=== PATIENT | female | born 1995 | race Caucasian/White ===

== ENCOUNTER → 2020-11-02 08:53 | Outpatient (BNVA) | payer BC, MEDICAID, SELFPAY | PROVIDERS: Visit Provider Obstetrics & Gynecology | DX: O34.219 Maternal care for unspecified type scar from previous cesarean delivery (principal); O21.9 Vomiting of pregnancy, unspecified; O26.891 Other specified pregnancy related conditions, first trimester; G43.109 Migraine with aura, not intractable, without status migrainosus; O99.331 Smoking (tobacco) complicating pregnancy, first trimester; F17.220 Nicotine dependence, chewing tobacco, uncomplicated; Z3A.10 10 weeks gestation of pregnancy | CPT/HCPCS: 80307; 81000; 85027; 86592; 86762; 86803; 86850; 86900; 87086; 87340; 87806 ==

== ENCOUNTER → 2020-11-23 13:10 | Outpatient (BNVA) | payer BC, MEDICAID, SELFPAY | PROVIDERS: Visit Provider Obstetrics & Gynecology | DX: O21.9 Vomiting of pregnancy, unspecified; Z3A.00 Weeks of gestation of pregnancy not specified | CPT/HCPCS: 81000; 87491; 87591 ==

== ENCOUNTER → 2020-12-17 13:11 | Outpatient (BNVA) | payer BC, MEDICAID, SELFPAY | PROVIDERS: Visit Provider Obstetrics & Gynecology | DX: O21.9 Vomiting of pregnancy, unspecified | CPT/HCPCS: 81000 ==

== ENCOUNTER → 2021-01-10 09:05 | Outpatient (BNVA) | payer BC, MEDICAID, SELFPAY | PROVIDERS: Visit Provider Obstetrics & Gynecology | DX: Z36.87 Encounter for antenatal screening for uncertain dates (principal) | CPT/HCPCS: 76805 ==

== ENCOUNTER → 2021-01-14 13:13 | Outpatient (BNVA) | payer BC, MEDICAID, SELFPAY | PROVIDERS: Visit Provider Obstetrics & Gynecology | DX: Z34.90 Encounter for supervision of normal pregnancy, unspecified, unspecified trimester (principal) | CPT/HCPCS: 81000 ==

== ENCOUNTER → 2021-02-08 15:21 | Outpatient (BNVA) | payer BC, MEDICAID, SELFPAY | PROVIDERS: Visit Provider Nurse Practitioner Women's Health | DX: O34.219 Maternal care for unspecified type scar from previous cesarean delivery (principal); G43.109 Migraine with aura, not intractable, without status migrainosus; Z72.0 Tobacco use | CPT/HCPCS: 81000; 82950 ==

== ENCOUNTER → 2021-03-07 10:57 | Outpatient (BNVA) | payer BC, MEDICAID, SELFPAY | PROVIDERS: Visit Provider Obstetrics & Gynecology | DX: Z34.80 Encounter for supervision of other normal pregnancy, unspecified trimester (principal) | CPT/HCPCS: 81000 ==

== ENCOUNTER → 2021-03-22 07:52 | Outpatient (BNVA) | payer BC, MEDICAID, SELFPAY | PROVIDERS: Visit Provider Obstetrics & Gynecology | DX: Z34.90 Encounter for supervision of normal pregnancy, unspecified, unspecified trimester (principal) | CPT/HCPCS: 81000; 85025 ==

== ENCOUNTER → 2021-04-05 08:08 | Outpatient (BNVA) | payer BC, MEDICAID, SELFPAY | PROVIDERS: Visit Provider Obstetrics & Gynecology | DX: O26.849 Uterine size-date discrepancy, unspecified trimester (principal); Z3A.00 Weeks of gestation of pregnancy not specified | CPT/HCPCS: 81000 ==

== ENCOUNTER → 2021-04-18 15:51 | Outpatient (BNVA) | payer BC, MEDICAID, SELFPAY | PROVIDERS: Visit Provider Obstetrics & Gynecology | DX: Z34.80 Encounter for supervision of other normal pregnancy, unspecified trimester (principal) | CPT/HCPCS: 81000 ==

== ENCOUNTER → 2021-05-03 08:30 | Outpatient (BNVA) | payer BC, MEDICAID, SELFPAY | PROVIDERS: Visit Provider Obstetrics & Gynecology | DX: Z34.80 Encounter for supervision of other normal pregnancy, unspecified trimester (principal) | CPT/HCPCS: 81000; 87081 ==

== ENCOUNTER → 2021-05-13 10:20 | Outpatient (BNVA) | payer BC, MEDICAID, SELFPAY | PROVIDERS: Visit Provider Obstetrics & Gynecology | DX: Z36.89 Encounter for other specified antenatal screening (principal) | CPT/HCPCS: 76815; 84315 ==

== ENCOUNTER → 2021-05-17 13:31 | Outpatient (BNVA) | payer BC, MEDICAID, SELFPAY | PROVIDERS: Visit Provider Obstetrics & Gynecology | DX: Z34.90 Encounter for supervision of normal pregnancy, unspecified, unspecified trimester (principal) | CPT/HCPCS: 81000 ==

== ENCOUNTER → 2021-05-24 08:46 | Outpatient (BNVA) | payer BC, MEDICAID, SELFPAY | PROVIDERS: Visit Provider Obstetrics & Gynecology | DX: Z34.80 Encounter for supervision of other normal pregnancy, unspecified trimester (principal) | CPT/HCPCS: 81000; 87635 ==

== ENCOUNTER → 2021-05-31 09:26 | Outpatient (BNVA) | payer BC, MEDICAID, SELFPAY | PROVIDERS: Visit Provider Obstetrics & Gynecology | DX: Z34.80 Encounter for supervision of other normal pregnancy, unspecified trimester (principal); Z20.822 Contact with and (suspected) exposure to COVID-19 | CPT/HCPCS: 81000; 87635 ==

== ENCOUNTER → 2021-06-06 10:48 | Outpatient (BNVA) | payer BC, MEDICAID, SELFPAY | PROVIDERS: Visit Provider Obstetrics & Gynecology | DX: Z34.80 Encounter for supervision of other normal pregnancy, unspecified trimester; Z20.822 Contact with and (suspected) exposure to COVID-19 | CPT/HCPCS: 81000; 87635 ==

== ENCOUNTER 2021-06-08 18:21 | Inpatient (IN) | payer BC, SELFPAY ==
[2021-06-08] VITALS (24 sets, daily range): BP systolic 93–135; BP diastolic 51–78; PULSE 69–90; RESP 18; TEMP 36.9; BMI 34.8
[2021-06-08 19:34] LABS: Basophils % 0.2 %; Eosinophils # 0.1 10^3/uL (0.0-0.8); Eosinophils % 0.5 %; Hematocrit 33.3 % (37.0-47.0); Hemoglobin 10.6 g/dL (11.5-15.3); Lymphocytes # 2.1 10^3/uL (0.8-4.8); Lymphocytes % 18.3 %; Mean Corpuscular HGB Conc 31.8 g/dL (30.0-36.0); Mean Corpuscular Hemoglobin 26.8 pg (28.0-34.0); Mean Corpuscular Volume 84.1 fl (81-99); Mean Platelet Volume 10.5 fL (7.4-10.4); Monocytes # 0.9 10^3/uL (0.2-0.9); Monocytes % 8.1 %; Neutrophils # 8.14 10^3/uL (1.8-7.7); Neutrophils % 72.2 %; Nucleated Red Blood Cells % 0 %; Platelet Count 196 10^3/cmm (130-400); Red Blood Count 3.96 10^6/uL (4.1-5.3); White Blood Count 11.3 10^3/uL (4.0-10.0)
--- NOTE | 2021-06-08 20:36 | PM.OPHPUD ---
Labor & Delivery H&P Update Date of Procedure: June 08, 2021 Date H&P Performed: 06/06/21 H&P update information: I have reviewed H&P completed within last 30 days, I have examined patient prior to procedure, No changes to prior documentation and H&P is in [facility] on date indicated Admission Diagnosis:
--- NOTE | 2021-06-08 20:37 | P.PN_ITS ---
Subjective Subjective: Interval history: Mrs. Gee 26 y/o female with EGA at 41 weeks with history of previous C/D. Refers feeling good and comfortable. Vitals/I&O/Wt Last Vital Signs Pulse 83 06/08/21 20:21 Resp 18 06/08/21 18:25 BP 125/72 06/08/21 20:21 Weight last 48 hrs Weight 92.079 kg Physical Exam Narrative: EXAM NARRATIVE: GA: Alert and oriented ?3. Lungs: Clear to auscultation bilaterally. Heart: Regular rhythm and rate. Abdomen: Gravid, full the height equals dates, nontender. EMERGENCY DEPARTMENT COORDINATOR: SVE; dilation: 2 cm, effacement: 30%, station: -4, presentation: Vertex, membranes: Intact. Extremities: no edema, no cyanosis, no calves pain. heart tracing: Basal rate: 140's bpm, Variability: Moderate, A ccelerations: Present, Decelerations: Absent, Contraction: Irregular. Data : 06/08/21 19:00 A&P Assessment and plan (1) Term : Mrs. Gee 26-year-old female G2, P1 with an estimated gestational age of 41 weeks with a history of 1 previous delivery. She wants a TOLAC. She was counseled regarding TOLAC and . She was admitted for elective induction but cervix unfavorable with a Salas score of 3. Due to her previous history of delivery cervical ripening with prostaglandin is contraindicated. Mechanical cervical ripening with cervical ripening balloon recommended. Cervical ripening balloon was placed without complications in the usual manner. Patient tolerated placement of the cervix ripening balloon well. The patient and her were advised of the maximum recommended time with the balloon is 12 hours. Status: Acute (2) Previous delivery affecting : Status: Acute Attestations Medical Necessity Statement*: In my professional opinion per admitting diagnosis Coding Level of Care Code Acute Prop Maker for Chg Fwd Diagnoses Term Z34.90 Previous delivery affecting O34.219
[2021-06-09] VITALS (92 sets, daily range): BP systolic 92–134; BP diastolic 51–78; PULSE 66–92; RESP 12–16; TEMP 36.3–36.9; O2SAT 93–100
--- NOTE | 2021-06-09 08:13 | P.PN_ITS ---
Subjective Subjective: Interval history: Mrs. Barnett 26-year-old female G2, P1 with EGA at 41+1 weeks. Refers she spend the night ok. Deny feeling significant pain or strong contractions. Refers just vaginal pressure. Vitals/I&O/Wt Last Vital Signs Temp 97.3 F L 06/09/21 06:35 Pulse 80 06/09/21 08:06 Resp 18 06/08/21 18:25 BP 108/71 06/09/21 08:06 Weight last 48 hrs Weight 92.079 kg Physical Exam Narrative: EXAM NARRATIVE: GA: Alert and oriented ?3. Lungs: Clear to auscultation bilaterally. Heart: Regular rhythm and rate. Abdomen: Gravid, full the height equals dates, nontender. CONSERVATION OR HERITAGE ARCHITECT: SVE; dilation: 3 cm, effacement: 40%, station: -3, presentation: Vertex, membranes: Intact. Extremities: no edema, no cyanosis, no calves pain. heart tracing: Basal rate: 140's bpm, Variability: Moderate, Acceler ations: Present, Decelerations: Absent, Contraction: irregular q 10 min. Data : 06/08/21 19:00 A&P Assessment and plan (1) Term : Mrs. Gee 26-year-old female G2, P1 with an estimated gestational age of 41+1 weeks with a history of 1 previous delivery. Admitted for elective induction for TOLAC. A [employer] cervical ripening balloon was placed yesterday. It was left in place for 12 hours. Current Salas scored 6. heart tracing category 1. Patient was counseled regarding cervical dilation to 3 cm and recommended to start Pitocin infusion with low dose protocol. She was also counseled regarding signs and symptoms of possible uterine rupture and instructed to notify nursing personnel immediately. Status: Acute (2) Previous delivery affecting : Status: Acute Attestations Medical Necessity Statement*: In my professional opinion per admitting diagnosis Coding Level of Care Code Acute Adjunct Political Science Instructor for Chg Fwd Diagnoses Term Z34.90 Previous delivery affecting O34.219
[2021-06-09] MEDS: dextrose 5%-lactated ringers 1,000 ML 125 ML IV ×2 (08:44→16:57)
[2021-06-09] MEDS: oxytocin 30 UNIT/500 ML BAG IV (08:55)
--- NOTE | 2021-06-09 15:41 | P.PN_ITS ---
Subjective Subjective: Interval history: Mrs. Gee 26-year-old female G2, P1 with an estimated gestational age at 41 weeks 1 day. Referred feeling the contractions but not hurting. Vitals/I&O/Wt Last Vital Signs Temp 98.5 F 06/09/21 10:00 Pulse 81 06/09/21 15:36 Resp 16 06/09/21 10:00 BP 103/55 06/09/21 15:36 06/09/21 06/09/21 06/09/21 06:59 14:59 22:59 Intake Total 27.333 / 27.333 6.75 / 34.083 Balance 27.333 / 27.333 6.75 / 34.083 Weight last 48 hrs Weight 92.079 kg Physical Exam Narrative: EXAM NARRATIVE: GA: Alert and oriented ?3. Lungs: Clear to auscultation bilaterally. Heart: Regular rhythm and rate. Abdomen: Gravid, full the height equals dates, nontender. DIRECTOR OF ACQUISITIONS: SVE; dilation: 3 cm, effacement: 40%, station: -4, presentation: Vertex, membranes: Intact. Extremities: no edema, no cyanosis, no calves pain. heart tracing: Basal rate: 130's bpm, Variability: Moderate, Accelerations: Present, Decelerations: Absent, Contraction: q3min. Data : 06/08/21 19:00 A&P Assessment and plan (1) Term : Mrs. Gee 26-year-old female G2, P1 with an estimated gestational age of 41+1 weeks with a history of 1 previous delivery. Admitted for elective induction for TOLAC. Mrs. Gee now with regular contractions, however very little progress with cervical dilation and descent showing contractions are not adequate/effective. We will continue with Pitocin low dose protocol. heart tracing category 1. Status: Acute (2) Previous delivery affecting : Status: Acute Attestations Medical Necessity Statement*: My professional opinion per admitting diagnosis Coding Level of Care Code Acute Benefits Representative for Chg Fwd Diagnoses Term Z34.90 Previous delivery affecting O34.219
[2021-06-09] MEDS: lactated ringers 1,000 ML 999 ML IV (19:38)
--- NOTE | 2021-06-09 19:55 | P.ANESASSM_ITS ---
Pre-Anesthetic Assessment Pre-Anesthetic Assessment: Height/Weight: Height 1.63 m Weight 92.079 kg Temp Pulse Resp BP 98.5 F 92 16 129/60 06/09/21 10:00 06/09/21 19:51 06/09/21 10:00 06/09/21 19:51 Preop Diagnosis: IUP Proposed Procedure: Section Was Beta Lea taken within 24 hours: N/A Was Clonidine taken within 24 hours: N/A Social: Social History: No alcohol and No tobacco Exam: Pre-Anes Outpt Exam: alert and oriented x 3 Airway: Submandibular: WNL Cervical ROM: WNL MP: 2 Dentition: Full History/ROS: No significant complaints Pulmonary: Pulmonary: None reported CV/HEM: CV/HEM: None reported : : None reported Hepatic: Hepatic: None reported GI: GI: GERD Metabolic: Metabolic: None reported Musc/skel: Musc/skel: None reported Neuropsych: Neuropsych: None reported Anesthetic Plan: ASA status: 2 Anesthesia: Anesthesia Evaluation and Regional (specify below) (spinal) Risk of > 500 ml blood loss (7ml/kg in children): No Meds/Allergies Current Medications: Current Medications Generic Name Dose Route Start Last Admin Trade Name Freq PRN Reason Stop Dose Admin Dextrose/Lactated Ringer's 1,000 mls @ 125 m ls/hr 06/08/21 18:30 06/09/21 16:57 Dextrose 5%-Lact ated Ringers IV 125 mls/hr .Q8H HAYDER Administration PFSH Anesthesia PFSH: Medical History Depression with anxiety With panic disorder. Has been evaluated by [facility]. Last eval was 2 years. No pertinent past medical history neghx: htn,dm,thyroid,dvt/pe PCP: None Surgical History S/P primary low transverse (10/29/16) [place] [facility] [place] Family History Family/Other Ovarian cancer Great Grandmother- Maternal--dx age unknown Breast cancer Paternal Great Aunt--dx age 50's Mother Thyroid disease Denies family history of Colon cancer Diabetes Heart disease Hypercholesteremia Hypertension Uterine cancer Stroke Social History (Updated 06/06/21 @ 10:53 by Honey Rubalcava RN) Smoking and tobacco status: current every day smoker smokeless tobacco Smokeless tobacco details: chews tobacco once a day Alcohol intake: never Female Reproductive History: : 2 Data Anesthesia CBC & Chem 7: 06/08/21 19:00 Other Labs: Laboratory Results - last 48 hr 06/08/21 19:00 WBC 11.3 H RBC 3.96 L Hgb 10.6 L Hct 33.3 L MCV 84.1 MCH 26.8 L MCHC 31.8 RDW 20.0 H Plt Count 196 MPV 10.5 H Neut % (Auto) 72.2 Lymph % (Auto) 18.3 [place] % (Auto) 8.1 Eos % (Auto) 0.5 Baso % (Auto) 0.2 Neut # (Auto) 8.14 H Lymph # (Auto) 2.1 [place] # (Auto) 0.9 Eos # (Auto) 0.1 Baso # (Auto) 0.0 Nucleated RBC % (auto) 0 Nucleated RBCs # 0.0 Cardiac Studies: No Data to Display
[2021-06-09] MEDS: famotidine 20 mg/2 mL INJ IVP (19:57)
[2021-06-09] MEDS: metoclopramide 5 mg/mL SDV 2 mL 10 MG IVP (19:57)
[2021-06-09] MEDS: citric acid-sodium citrate 30 mL UDC PO (19:58)
--- NOTE | 2021-06-09 21:25 | PM.OP ---
Operative Report Date of procedure: June 09, 2021 Pre-op Diagnosis: IUP at 41 +2 weeks, Previous section Post-op diagnosis: same Procedure Done: Repeat low transverse delivery Specimens removed/disposition: Cord blood Surgeon: Franc Medina MD Anesthesia: Epidural Estimated blood loss (mL): 800 Complications: None Condition: stable Disposition: other (LDR room) Brief History: Mrs. Barnett 26 years old female G2, P1 with an estimated gestational age of 41 weeks 2 days admitted for induction. A cook cervical ripening balloon was placed for 12 hours. The patient was started on low dose protocol oxytocin, approximately 9 hours after oxytocin was started the patient changed her mind and requested a repeat delivery. Procedure: After assuring informed consent, the patient was taken to the operating room and anesthesia was initiated. She was placed in the dorsal supine position with a left lateral tilt. The abdomen was prepped and draped in the usual sterile manner. A time-out procedure was performed. A Pfannenstiel skin incision was made with the scalpel and carried through to the underlying layer of fascia with the Bovie. The fascia was nicked in the midline and the incision extended laterally with the Nicole scissors. The superior aspect of the fascial incision was then grasped with Melina clamps and elevated and the underlying rectus muscle dissected off bluntly and sharp with nicole scissors dense adhesions. Attention was then turned to the inferior aspect of the incision which, in similar fashion, was grasped and tented up with Melina clamps and the rectus muscle dissected bluntly. The rectus muscles were then in the midline and the peritoneum identified, tented up and entered sharply with Metzenbaum scissors. The peritoneal incision was then extended superiorly and inferiorly with good visualization of the bladder. The O retractor was then inserted and the vesicouterine peritoneum identified, grasped with pickups and entered sharply with Metzenbaum scissors. This incision was then extended laterally and the bladder flap created digitally. The uterus incised in a low transverse fashion with the scalpel. The uterine incision was then extended with the bandage scissors. A male infant with weight 4260 g was delivered in the cephalic presentation atraumatically at 2046 with Apgars 9/9. The nose and the mouth were suctioned with bulb and the cord clamped and cut. The cord was normal and had three vessels. Amniotic fluid was clear. The placenta was then removed manually and the uterus exteriorized and cleared of all clots and debris. The uterine incision was repaired with 0 Vicryl in a running-locked fashion. A second layer of the same suture was used to obtain excellent hemostasis. The gutters were cleared of all clots. Excellent hemostasis was noted. The uterus was then returned to the abdomen. The rectus muscles were approximated with 3-0 chromic gut. The fascia was reapproximated with 0 Vicryl in a midlock running fashion. The skin was closed with Insorb?s subcuticular absorbable mone. Then the incision was infiltrated with Exparel per protocol for pain management. The patient tolerated the procedure well. The sponge, lap and needle counts were correct times three. The patient was given Ancef 2 gm intravenously immediately after delivery of the infant.
--- NOTE | 2021-06-09 22:14 | ANE.PACU2 ---
Inpatient post-anesthesia follow up: Airway intact: Yes Vital signs: Temperature 98.3 F Pulse Rate 101 Respiratory Rate 16 Blood Pressure 128/79 Pulse Oximetry 96 Oxygen Delivery Me thod Room Air Oxygen Flow Rate Fraction of Inspir ed Oxygen Hydration adequate: Yes Nausea and vomiting: No Pain level: 1 Mental status: Baseline
[2021-06-10] VITALS (11 sets, daily range): BP systolic 100–128; BP diastolic 62–80; PULSE 88–101; RESP 14–18; TEMP 36.8–37.4; O2SAT 95–99
[2021-06-10] MEDS: ketorolac 30 mg/mL INJ IVP ×3 (03:26→16:14)
[2021-06-10] MEDS: lanolin oint 7 gm 1 APPLIC TOPICAL (03:27)
--- NOTE | 2021-06-10 03:45 | PC.NURSE ---
Patient up to recliner at bedside without difficulty.
[2021-06-10] MEDS: sodium chloride 0.9% 500 ML 999 ML IV (04:35)
[2021-06-10] MEDS: dextrose 5%-lactated ringers 1,000 ML 125 ML IV (05:25)
[2021-06-10] MEDS: miSOPROStol 200 mcg Tablet 800 MCG PR (06:22)
[2021-06-10 06:30] LABS: Hematocrit 29.2 % (37.0-47.0); Hemoglobin 9.4 g/dL (11.5-15.3); Mean Corpuscular HGB Conc 32.2 g/dL (30.0-36.0); Mean Corpuscular Hemoglobin 27.1 pg (28.0-34.0); Mean Corpuscular Volume 84.1 fl (81-99); Mean Platelet Volume 9.9 fL (7.4-10.4); Platelet Count 143 10^3/cmm (130-400); Red Blood Count 3.47 10^6/uL (4.1-5.3); Red Cell Distribution Width 20.1 % (12.1-15.1); White Blood Count 16.5 10^3/uL (4.0-10.0)
[2021-06-10] MEDS: prenatal vitamin Capsule 1 CAP PO (09:36)
[2021-06-10] MEDS: ferrous sulfate EC 325 mg Tablet PO (09:36)
[2021-06-10] MEDS: docusate sodium 100 mg Capsule PO (09:36)
--- NOTE | 2021-06-10 12:00 | PC.NURSE ---
York catheter removed per nurse driven protocol. 10 mL normal saline removed from york bulb; catheter removed intact. Pt tolerated well.
--- NOTE | 2021-06-10 17:52 | PM.PN ---
Subjective Subjective: Interval history: Mrs. Barnett 26-year-old female G2, P2 status post repeat delivery. Refers starting to feel incisional tenderness. Vitals/I&O/Wt Last Vital Signs Temp 98.5 F 06/10/21 22:11 Pulse 88 06/10/21 22:11 Resp 16 06/10/21 22:11 BP 105/72 06/10/21 22:11 Pulse Ox 96 06/10/21 22:11 06/10/21 06/11/21 06/11/21 22:59 06:59 14:59 Intake Total 900 / 1722.917 Output Total 550 / 1650 Balance 350 / 72.917 Physical Exam Narrative: EXAM NARRATIVE: GA: Alert and oriented ?3. HEENT: WNL. Heart: Regular rate and rhythm. Lungs: Clear to auscultation bilaterally. Abdomen: Bowel sounds present, Uterine fundus below umbilicus. No Fundal Tenderness. Minimal tenderness at incision, incision clean and dry, no redness, pain or edema. CAST ASSOCIATE: Normal lochia. Extremities: No edema, no cyanosis, no calves pain. Data : 06/10/21 06:20 A&P Assessment and plan (1) Term delivered: Mrs. Barnett . She is afebrile and hemodynamically stable. Tolerating diet well. Ambulating without difficulty. We will continue observation for an additional 24 hours. Status: Acute Attestations Medical Necessity Statement*: In my professional opinion per admitting diagnosis Coding Level of Care Code Acute Stockroom Attendant for Chg Fwd Diagnoses Term delivered O80
[2021-06-11] MEDS: ibuprofen 800 mg tablet PO ×2 (00:51→08:23)
[2021-06-11] MEDS: HYDROcodone-acetaminophen 5-325 mg Tablet PO ×2 (00:51→05:56)
[2021-06-11] MEDS: prenatal vitamin Capsule 1 CAP PO (08:22)
[2021-06-11] MEDS: docusate sodium 100 mg Capsule PO (08:22)
[2021-06-11] MEDS: ferrous sulfate EC 325 mg Tablet PO (08:22)
--- NOTE | 2021-06-11 08:57 | P.DS_ITS ---
Discharge Providers MOTOR OVERHAULER Date of Admission: 06/08/21 18:21 Date of Discharge: 06/11/21 Attending Provider at Admission: Franc Medina MD Attending Provider at Discharge: Franc Medina MD Primary Care Provider: JAYESH Short Diagnoses at Discharge Discharge Diagnosis (1) Term delivered: Status: Acute (2) Previous delivery affecting : Status: Acute (3) Anemia, : Status: Acute Reason for Visit Reason for Visit: INDUCTION Hospital Course Hospital Course Mrs. Gee 26-year-old female G2, P1 with an estimated gestational age of 41 weeks 1 day. With a history of 1 previous delivery admitted for induction for trial of labor after delivery. At admission she had an unfavorable cervix with a Salas score of 3. A Cook cervical ripening balloons was placed for 12 hours. Oxytocin was started afterwards with low dose protocol with a Salas score of 6. She had slow progression of labor and at 10 hours after oxytocin was started and contractions were starting to be adequate and regular the patient changed her mind and requested a repeat delivery. A repeat delivery was performed without complications. She delivered a male infant Apgars 9/9 with a birthweight of 4260 g. Postop recovery and observation was uneventful. She is postoperative day 2, afebrile and hemodynamically stable. Tolerated diet well, passing flatus adequate urine output. Ambulating without difficulty. Information Peripartum Data: Infant Delivery Method: Physical Exam Narrative: EXAM NARRATIVE: GA: Alert and oriented ?3. HEENT: WNL. Breasts: engorged Nipples - skin intact Heart: Regular rate and rhythm. Lungs: Clear to auscultation bilaterally. Abdomen: Bowel sounds present, minimal tenderness, incision clean and dry, no redness, pain or edema. Uterine fundus below umbilicus. No Fundal Tenderness. GUEST RELATIONS COORDINATOR: Normal lochia Extremities: No edema, no cyanosis, no calves pain. History History History 2 Term 1 Miscarriages/Ectopic 0 0 Living Children 1 Discharge Data Vitals: Last Vital Signs Temp 98.5 F 06/10/21 22:11 Pulse 88 06/10/21 22:11 Resp 16 06/10/21 22:11 BP 105/72 06/10/21 22:11 Pulse Ox 96 06/10/21 22:11 Discharge Plan Discharge Patient Disposition: Home Condition: Stable Prescriptions: New ibuprofen 800 mg tablet 800 mg PO TID PRN (Reason: pain) Qty: 60 RF: 0 hydrocodone-acetaminophen 5-325 mg tablet 1 tab PO Q4H PRN (Reason: pain) Qty: 30 RF: 0 Iron (ferrous sulfate) 325 mg (65 mg iron) tablet 325 mg PO BID Qty: 60 RF: 0 acetaminophen 325 mg capsule 325 mg PO Q4H PRN (Reason: fever or pain) Qty: 60 RF: 0 Continued prenat.vits,tamiko,qdk-njsu-[id number] Tablet 1 tab PO DAILY RF: 0 diphenhydramine HCl [Benadryl] 25 mg capsule 50 mg PO ONCE PRNRF: 0 acetaminophen [Tylenol Extra Strength] 500 mg tablet 1,000 mg PO Q6H PRNRF: 0 polyethylene glycol 3350 [Miralax] 17 gram/dose powder 17 g PO DAILY PRNRF: 0 ferrous sulfate [Iron (ferrous sulfate)] 325 mg (65 mg iron) tablet 325 mg PO BID Qty: 60 RF: 0 Discharge Orders: Discharge Order (Routine); Ordered 06/11/21 Ordered By: Franc Medina Referrals: Franc Medina MD [Physician] - 2 weeks Discharge Diet: Usual diet Discharge Activity: Increase activity as tolerated Patient Instructions: Choosing Between Vaginal After () or Repeat... (GEN), Caring for Your Baby (GEN), Your [place]'s Appearance (GEN), C- Section (GEN), Opioid Safety Activity Restrictions/Additional Instructions: 1. Please call [facility] on next working day to make your post-operative appointment in 2 weeks then visit at 6 weeks. 2. Please stay home until you come back to the clinic on first post-operative check up. 3. Please follow instructions on your medications CAREFULLY. 4. If you have abdominal incision, do not cover it unless dressing is necessary because of drainage. OK to shower, but avoid bath. Leave steri-strips until they fall off. If they are still on one week after surgery, you may remove them. 5. If you had vaginal surgery or vaginal repair, Dr. Medina may instruct you to take SITZ bath. 6. Yellow, blood tinged odorous vaginal discharge is usually normal after hysterectomy or vaginal surgeries. 7. No sexual intercourse, tampons, or douches until you are completely released from the post-operative care. 8. Avoid constipation by eating right and maybe using some Metamucil or Milk of Magnesia. 9. All prescription refills are given during the working hours. Please do no wait till it runs out. Call the clinic at [phone] before your medication runs out. The clinic will get in touch with your doctor to prescribe medications if necessary. 10. Please remain within 40 mile radius from our hospital because emergencies do happen now and then during the post-operative period. 11. If you have stairs at home, take one step at a time slowly and minimize the number of trips. It helps to stay in one floor for the next few days. No lif ting except what you can lift by one hand until you are released from the post- operative care. 12. Driving is discouraged until you are well healed. It may be 3-4 weeks before you feel strong enough to drive. You should be able to turn and look through the rear window without pain and you should be able to push the brake pedal very hard without pain before you drive. No fast rules, but SAFETY should be your primary concern. DO NOT drive if you are on sedating medications such as narcotics. 13. Call the clinic (during working hours) to make urgent appointment or go to the Emergency room, if any of the following occurs: i. Vaginal bleeding becomes heavy, more than a period. ii. Incision becomes red and sore, or drains pus. iii. Your temperature is over 100.4 or you have chill. iv. IV site becomes red and swollen (a little ``knot?? is usually OK) v. Persistent nausea and vomiting vi. Persistent constipation or diarrhea vii. Rash or allergic reaction to medications. Discharge Attestations MOTOR OVERHAULER Time Spent in Discharge Care*: greater than 30 min Specific Discharge Activities: Specific discharge activities: educating patient and educating and/or supporting family/caregiver Coding Level of Care Code Acute Healthcare Prof for Renetta Fwantonio Diagnoses Term delivered O80 Previous delivery affecting O34.219 Anemia, O90.81
[2021-06-11 11:08] VITALS: BP 114/76; RESP 17; TEMP 36.4; O2SAT 99
[2021-06-11 11:11] VITALS: BP 114/76; RESP 17; TEMP 36.4; O2SAT 99
== END 2021-06-11 11:40 | disposition home or self-care (01) | DRG 788 ==
LOC: OPOB 18:30 → OBGYN 18:30
PROVIDERS: Admitting Provider Obstetrics & Gynecology; Visit Provider Obstetrics & Gynecology
PROC: 10D00Z1 Extraction of Products of Conception, Low, Open Approach (ICD-10-PCS; CPT 59514; principal; 2021-06-09 19:35)
DX: O34.211 Maternal care for low transverse scar from previous cesarean delivery (principal); O48.0 Post-term pregnancy; Z3A.41 41 weeks gestation of pregnancy; Z37.0 Single live birth; O90.81 Anemia of the puerperium; O99.334 Smoking (tobacco) complicating childbirth; F17.220 Nicotine dependence, chewing tobacco, uncomplicated
CPT/HCPCS: 36415; 51702; 59025; 59409; 85025; 85027; 96374; 96376; 98960; C9290; J0690; J1885; J2274; J2405; J2765; J3010; J3490; J7040

== ENCOUNTER → 2021-07-18 10:40 | Outpatient (BNVA) | payer BC, MEDICAID, SELFPAY | PROVIDERS: Visit Provider Obstetrics & Gynecology | DX: Z12.4 Encounter for screening for malignant neoplasm of cervix (principal) | CPT/HCPCS: 88175 ==

== ENCOUNTER → 2022-02-06 15:56 | Outpatient (BNVA) | payer BC, MEDICAID, SELFPAY | PROVIDERS: Visit Provider Obstetrics & Gynecology | DX: Z30.430 Encounter for insertion of intrauterine contraceptive device (principal) | CPT/HCPCS: 81025 ==

== ENCOUNTER → 2022-03-13 14:29 | Outpatient (BNVA) | payer BC, MEDICAID, SELFPAY | PROVIDERS: Visit Provider Obstetrics & Gynecology | DX: Z30.431 Encounter for routine checking of intrauterine contraceptive device (principal); L65.9 Nonscarring hair loss, unspecified; N92.1 Excessive and frequent menstruation with irregular cycle | CPT/HCPCS: 84443 ==

== ENCOUNTER → 2022-06-29 15:20 | Outpatient (BNVA) | payer BC, MEDICAID, SELFPAY | PROVIDERS: Visit Provider Internal Medicine | DX: L65.9 Nonscarring hair loss, unspecified (principal); Z83.49 Family history of other endocrine, nutritional and metabolic diseases; E07.9 Disorder of thyroid, unspecified | CPT/HCPCS: 82627; 83516; 84403; 84439; 84443; 84480; 86376; 86800 ==

== ENCOUNTER 2023-06-18 14:15 | Emergency (ER) | payer BC, MEDICAID, SELFPAY ==
[2023-06-18 14:21] VITALS: BP 120/79; PULSE 68; RESP 16; TEMP 37.1; O2SAT 99; BMI 30.5
[2023-06-18 15:56] LABS: Basophils % 0.2 %; Eosinophils # 0.1 10^3/uL (0.0-0.8); Eosinophils % 0.8 %; Hematocrit 40.7 % (36-47); Lymphocytes # 2.9 10^3/uL (0.8-4.8); Lymphocytes % 28.9 %; Mean Corpuscular HGB Conc 32.9 g/dL (30-55); Mean Corpuscular Volume 88.1 fl (85-98); Mean Platelet Volume 10.4 fL (7.4-10.4); Monocytes # 0.6 10^3/uL (0.2-0.9); Neutrophils # 6.34 10^3/uL (1.8-7.7); Nucleated Red Blood Cells % 0 %; Platelet Count 247 10^3/cmm (157-399); Red Blood Count 4.62 10^6/uL (3.85-5.65); Red Cell Distribution Width 13.2 % (12.1-15.1)
--- NOTE | 2023-06-18 16:12 | W.ED.ABDPA2 ---
HPI - Abdominal Pain General: Chief Complaint: Abdominal Pain Stated Complaint: abd pain Time Seen by Provider: 06/18/23 15:59 Source: patient Mode of arrival: ambulatory History of Present Illness: Patient is a 28-year-old female with past medical history of x2 who presents the emergency department complaining of abdominal pain onset 2 years. Patient states the pain has been intermittent since onset 2 years ago, but it has significantly worsened over the past 2 weeks as she noticed some vaginal spotting prior to the worsening of pain. She has an IUD implanted, and states that she thinks it might have moved. Otherwise she notes a history of constipation and states that this feels similar. The pain does not radiate but states that it occurs simultaneously in the suprapubic and left lower quadrant areas. She describes the pain as a fork being stabbed in her abdomen and then simultaneously twisted . Normally, she says the pain is worsened when she feels like she needs to defecate, but this has been unrelated for the past 2 weeks. She has taken ibuprofen and MiraLAX [id number], but has not had much relief from this. She states she had to call off work due to the pain. She denies possibility of being unless her IUD somehow dislodged. She reports associated nausea but denies any vomiting, diarrhea, breathing difficulties, chills, fatigue, change in appetite, or any other symptoms. She has no change in bowel or bladder habits. MD elicited complaint: abdominal pain Pertinent past history: constipation Onset (ago): year(s) Pain Consistency: intermittent Location: LLQ and Suprapubic Severity: moderate Radiation: none Associated Symptoms: Reports nausea; Denies change in bowel habits, chills, diarrhea, dysuria, fever(s), hematochezia, hematemesis, melena and vomiting Related Data: Date of Last Menstrual Period: 06/14/23 Review of Systems Const: Denies: fever(s), chills, change in appetite, fatigue, malaise or night sweats Card: Denies: chest pain or palpitations Resp: Denies: dyspnea or productive cough GI: Reports: abdominal pain and nausea; Denies: vomiting, hematemesis, diarrhea, change in bowel habits, pain on defecation, hematochezia or melena : Denies: flank pain, difficulty voiding, dysuria, urinary frequency, urinary urgency or urinary hesitancy Musc: Denies: neck pain or back pain Skin/Breast: Denies: rash Neuro: Denies: headache(s) PFSH ED PFSH: Medical History Aftercare following surgery of the genitourinary system Depression with anxiety With panic disorder. Has been evaluated by [facility]. Last eval was 2 years. No pertinent past medical history neghx: htn,dm,thyroid,dvt/pe PCP: None Surgical History S/P primary low transverse (10/29/16) Performed by Dr. Medina at [facility] in [place], [place] Family History Family/Other Ovarian cancer Great Grandmother- Maternal--dx age unknown Breast cancer Paternal Great Aunt--dx age 50's Mother Thyroid disease Denies family history of Colon cancer Diabetes Heart disease Hypercholesteremia Hypertension Uterine cancer Stroke Social History Smoking and tobacco/nicotine status: never used tobacco/nicotine Alcohol intake: never Substance/Drug Use: never Female Reproductive History: Date of last menstrual period: 06/14/23 Physical Exam Const: COMMON NORMALS: no acute distress GENERAL APPEARANCE: cooperative and comfortable ORIENTATION/CONSCIOUSNESS: Yes awake, Yes oriented to person, Yes oriented to place and Yes oriented to time HENMT: COMMON NORMALS: normocephalic, atraumatic and hearing grossly normal bilaterally HEAD & SCALP: normocephalic and atraumatic Resp: COMMON NORMALS: normal respiratory effort, No retractions, No use of accessory muscles and clear to auscultation bilaterally AUSCULTATION: clear to auscultation bilaterally Cardio: COMMON NORMALS: regular rate, regular rhythm and No murmurs present (Cardio) RATE: regular rate RHYTHM: regular rhythm GI: COMMON NORMALS: Soft to palpation, No hepatosplenomegaly present and no masses INSPECTION: Yes normal to inspection AUSCULTATION: Yes normoactive bowel sounds PALPATION: Yes Soft to palpation, Yes Tenderness to palpation present (GI) (Very mild tenderness to palpation in the suprapubic and left lower quadrant), No Guarding due to palpation present (GI), No Rigid due to palpation, Yes No hepatosplenomegaly present, No Hernia present and No Carnett's sign positive : COMMON NORMALS: Yes no CVA tenderness BLADDER/KIDNEY EXAM: Yes no CVA tenderness EXTERNAL FEMALE EXAM: No Hernia present Back/Pelvis: COMMON NORMALS: no CVA tenderness Extremity: COMMON NORMALS: normal to inspection, capillary refill normal, no clubbing, cyanosis or edema, no calf tenderness and no pedal edema Neuro: SENSORIUM/ORIENTATION: Yes oriented to person, Yes oriented to place and Yes oriented to time Skin: COMMON NORMALS: no rashes or lesions noted GENERAL SKIN EXAM: no rashes or lesions noted Course Vital Signs: Vital signs: Vital Signs Temperature 98.8 F 06/18/23 14:21 Pulse Rate 63 06/18/23 18:54 Respiratory Rate 16 06/18/23 18:54 Blood Pressure 111/72 06/18/23 18:54 Pulse Oximetry 98 06/18/23 18:54 Oxygen Delivery Me thod Room Air 06/18/23 17:00 MDM - Abdominal Pain Medical Decision Making Abdominal exam benign. Laboratory test done in the emergency room were normal. Her white count was normal urine did not show signs of infection urine negative. She has ultrasound set up with OB tomorrow she should complete ultrasound at that time follow-up with Dr. Medina. Patient given hydrocodone for pain to use in the interim. Medical Records I reviewed the patient's medical records. Lab Data I reviewed the patient's lab results. 06/18/23 15:42 06/18/23 15:42 Labs/Radiology: Laboratory Results WBC 9.90 10^3/uL (3.29-11.43) 06/18/23 15:42 RBC 4.62 10^6/uL (3.85-5.65) 06/18/23 15:42 Hgb 13.40 g/dL (11.27-16.99) 06/18/23 15:42 Hct 40.7 % (36-47) 06/18/23 15:42 MCV 88.1 fl (85-98) 06/18/23 15:42 MCH 29.0 pg (27-33) 06/18/23 15:42 MCHC 32.9 g/dL (30-55) 06/18/23 15:42 RDW 13.2 % (12.1-15.1) 06/18/23 15:42 Plt Count 247 10^3/cmm (157-399) 06/18/23 15:42 MPV 10.4 fL (7.4-10.4) 06/18/23 15:42 Neut % (Auto) 64.0 % 06/18/23 15:42 Lymph % (Auto) 28.9 % 06/18/23 15:42 Dickson % (Auto) 6.0 % 06/18/23 15:42 Eos % (Auto) 0.8 % 06/18/23 15:42 Baso % (Auto) 0.2 % 06/18/23 15:42 Neut # (Auto) 6.34 10^3/uL (1.8-7.7) 06/18/23 15:42 Lymph # (Auto) 2.9 10^3/uL (0.8-4.8) 06/18/23 15:42 Dickson # (Auto) 0.6 10^3/uL (0.2-0.9) 06/18/23 15:42 Eos # (Auto) 0.1 10^3/uL (0.0-0.8) 06/18/23 15:42 Baso # (Auto) 0.0 10^3/uL (0.0-0.1) 06/18/23 15:42 Nucleated RBC % (auto) 0 % 06/18/23 15:42 Nucleated RBCs # 0.0 /100WBC 06/18/23 15:42 Sodium 139 mmol/L (136-145) 06/18/23 15:42 Potassium 3.9 mmol/L (3.5-5.1) 06/18/23 15:42 Chloride 104 mmol/L (98-107) 06/18/23 15:42 Carbon Dioxide 25 mmol/L (22-29) 06/18/23 15:42 Anion Gap 13.9 (5-19) 06/18/23 15:42 BUN 12 mg/dL (6-20) 06/18/23 15:42 Creatinine 0.5 mg/dL (0.5-0.9) 06/18/23 15:42 GFR Calculation 149.1 mL/min (90-130) H 06/18/23 15:42 Glucose 83 mg/dL (65-115) 06/18/23 15:42 Calculated Osmolality 287 mOsm/kg (285-295) 06/18/23 15:42 Calcium 10.1 mg/dL (8.5-10.5) 06/18/23 15:42 Total Bilirubin 0.4 mg/dL (0.15-1.2) 06/18/23 15:42 AST 13 U/L (0-32) 06/18/23 15:42 ALT 13 U/L (0-33) 06/18/23 15:42 Alkaline Phosphatase 71 U/L (35-105) 06/18/23 15:42 Total Protein 7.5 g/dL (6.6-8.7) 06/18/23 15:42 Albumin 4.6 g/dL (3.5-5.2) 06/18/23 15:42 Globulin 2.9 g/dL (1.3-4.6) 06/18/23 15:42 Lipase 22 U/L (13-60) 06/18/23 15:42 HCG, Qual Negative (Negative) 06/18/23 15:42 Urine Color Yellow (Yellow) 06/18/23 17:06 Urine Appearance Sl hazy (CLEAR) A 06/18/23 17:06 Urine pH 6 (5-7) 06/18/23 17:06 Ur Specific [place] 1.025 (1.005-1.030) 06/18/23 17:06 Urine Protein Neg (Negative) 06/18/23 17:06 Urine Glucose (UA) Norm (Normal) 06/18/23 17:06 Urine Ketones Negative (Negative) 06/18/23 17:06 Urine Blood Neg (Negative) 06/18/23 17:06 Urine Nitrate Negative (Negative) 06/18/23 17:06 Urine Bilirubin Neg (Negative) 06/18/23 17:06 Urine Urobilinogen Norm mg/dL (Negative) 06/18/23 17:06 Ur Leukocyte Esterase Negative (Negative) 06/18/23 17:06 Urine RBC 0-4 /hpf (0-2) H 06/18/23 17:06 Urine WBC Rare /hpf (0-5) 06/18/23 17:06 Ur Squamous Epith Cells 10-15 /hpf (0-5) H 06/18/23 17:06 Amorphous Sediment Not Reportable 06/18/23 17:06 Urine Bacteria 1+ /hpf (NONE) H 06/18/23 17:06 Fine Granular Casts 0-4 /lpf H 06/18/23 17:06 Urine Mucus 2+ /hpf 06/18/23 17:06 No radiology studies performed this visit Discharge Plan Discharge Patient Disposition: Home Clinical Impression: Pelvic pain Condition: Stable Prescriptions: New hydrocodone-acetaminophen 5-325 mg tablet 1 tab PO Q6H PRN (Reason: pain) Qty: 15 0RF No Action diphenhydramine HCl [Benadryl] 25 mg capsule 50 mg PO ONCE PRN polyethylene glycol 3350 [Miralax] 17 gram/dose powder 17 g PO DAILY PRN citalopram [Celexa] 10 mg tablet 10 mg PO DAILY buspirone 10 mg tablet 10 mg PO BID Mirena 20 mcg/24 hours (7 yrs) 52 mg intrauterine device intrauterine ibuprofen 800 mg tablet 800 mg PO TID Qty: 60 0RF ketoconazole 2 % cream 1 applic topical BID 21 Days Qty: 30 6RF Rx Instructions: Apply to feet and toes two times a day for 3 weeks. acetaminophen 325 mg capsule 325 mg PO Q4H PRN (Reason: fever or pain) Qty: 60 0RF Discharge Orders: Discharge ED (Routine); Ordered 06/18/23 Ordered By: Gabriel Moore Discharge Diet: Usual diet Discharge Activity: Increase activity as tolerated Patient Instructions: Opioid Safety, Pain Management Activity Restrictions/Additional Instructions: Thank you for choosing [facility] for your healthcare needs today. Please realize this is an emergency room and that we are providing you with a medical screening exam and this may not be complete and all inclusive of all the testing and or work up that you may need to determine your ailment or severity of your illness. It is very important that you follow up as instructed or that you return to the Emergency Department should you have concerns or if your condition changes or worsens in any way. You were seen today for chronic left-sided pelvic pain laboratory test done in the emergency room were normal. Recommend that you follow-up with Dr. Medina will set up an outpatient pelvic ultrasound. Case management make arrangements for the ultrasound. Coding Level of Care Code ED [employer] for Renetta Carmona
[2023-06-18 16:19] LABS: Alanine Aminotransferase 13 U/L (0-33); Albumin Level 4.6 g/dL (3.5-5.2); Alkaline Phosphatase 71 U/L (35-105); Anion Gap 13.9 (5-19); Aspartate Amino Transferase 13 U/L (0-32); Blood Urea Nitrogen 12 mg/dL (6-20); Calcium 10.1 mg/dL (8.5-10.5); Carbon Dioxide 25 mmol/L (22-29); Chloride 104 mmol/L (98-107); Globulin 2.9 g/dL (1.3-4.6); Glomerular Filtration Rate 149.1 mL/min (90-130); Glucose 83 mg/dL (65-115); HCG, Serum Qual Negative (Negative); Lipase 22 U/L (13-60); Osmolality Calculated 287 mOsm/kg (285-295); Potassium 3.9 mmol/L (3.5-5.1); Sodium 139 mmol/L (136-145); Total Bilirubin 0.4 mg/dL (0.15-1.2); Total Protein 7.5 g/dL (6.6-8.7)
[2023-06-18 17:00] VITALS: BP 111/74; PULSE 64; RESP 16; O2SAT 98
--- NOTE | 2023-06-18 17:00 | PC.NURSE ---
RN assumed care at this time
[2023-06-18 17:25] LABS: Add Urine Microscopic? YES; Bilirubin Urine Neg (Negative); Blood Urine Neg (Negative); Glucose Urine UA Norm (Normal); Ketones Urine Negative (Negative); Leukocyte Esterase Urine Negative (Negative); Nitrate Urine Negative (Negative); Protein Urine Neg (Negative); Specific Gravity, Urine 1.025 (1.005-1.030); Urine Appearance SL Hazy (CLEAR); Urine Color Yellow (Yellow); Urobilinogen Urine Norm (Negative); pH Urine 6 (5-7)
[2023-06-18 17:31] LABS: Add Urine Culture? No; Bacteria Urine 1+ /hpf; Fine Granular Casts Urine 0-4 /lpf; Mucus Urine 2+ /hpf; RBC Urine 0-4 /hpf (0-2); WBC Urine RARE /hpf (0-5)
[2023-06-18 18:54] VITALS: BP 111/72; PULSE 63; RESP 16; O2SAT 98
--- NOTE | 2023-06-20 08:50 | DCPLANNER ---
Message sent to OBGYN for follow up on pelvic pain/ultrasound.
== END 2023-06-18 18:55 | disposition home or self-care (01) ==
PROVIDERS: Physician Assistant; Emergency Provider Family Medicine
DX: R10.2 Pelvic and perineal pain (principal)
CPT/HCPCS: 36415; 80053; 81001; 83690; 84703; 85025; 99283

== ENCOUNTER → 2023-07-24 11:16 | Outpatient (BNVA) | payer BC, MEDICAID, SELFPAY | PROVIDERS: Visit Provider Obstetrics & Gynecology | DX: R10.2 Pelvic and perineal pain (principal) | CPT/HCPCS: 76830 ==

== ENCOUNTER → 2023-07-26 11:45 | Outpatient (BNVA) | payer BC, MEDICAID, SELFPAY | PROVIDERS: Visit Provider Obstetrics & Gynecology | DX: Z30.431 Encounter for routine checking of intrauterine contraceptive device (principal); Z30.432 Encounter for removal of intrauterine contraceptive device; Z30.017 Encounter for initial prescription of implantable subdermal contraceptive | CPT/HCPCS: 81025 ==

== ENCOUNTER → 2023-10-02 14:14 | Outpatient (BNVA) | payer BC, MEDICAID, SELFPAY | PROVIDERS: Visit Provider Nurse Practitioner Family | DX: R50.9 Fever, unspecified (principal) | CPT/HCPCS: 87400; 87880 ==

== ENCOUNTER → 2024-01-22 14:27 | Outpatient (BNVA) | payer MEDICAID, SELFPAY | PROVIDERS: Visit Provider Nurse Practitioner Family | DX: M25.521 Pain in right elbow (principal) | CPT/HCPCS: 73080 ==

== ENCOUNTER → 2025-05-19 16:06 | Outpatient (BNVA) | payer BC, MEDICAID, SELFPAY | PROVIDERS: Visit Provider Obstetrics & Gynecology | DX: Z12.4 Encounter for screening for malignant neoplasm of cervix (principal) | CPT/HCPCS: 88175 ==